=== PATIENT | female | born 1980 | race Caucasian/White ===

== ENCOUNTER → 2017-02-09 | Outpatient (CLI) | payer OTHER ==
--- NOTE | 2017-02-09 12:00 | REP ---
Clinical: Anatomical evaluation. Comparison: None . Findings: Examination demonstrates a single live intrauterine in transverse (head to maternal right) presentation. motion is identified by technologist. Placenta is noted anteriorly and grade one without evidence for placenta previa or abruption. Amniotic fluid volume is normal. Cervix measures 4.8 cm in length and appears closed. No evidence for nuchal cord. Gestational age by LMP 30 weeks 1 day with ДМИТРИЙ 04/19/2017 . Gestational age by current measurements 31 weeks 5 days with ДМИТРИЙ 04/08/2017 . FHR equals 139 beats per minute. BPD 7.9 cm 31 weeks 5 days HC 29.2 cm 32 weeks 1 day AC 26.7 cm 30 weeks 6 days FL 6.1 cm 31 weeks 5 days HL 5.6 cm 32 weeks 4 days HC/AC ratio 1.09 Estimated weight 1738 grams ( 69th percentile). Amniotic fluid index = 20.2 cm (9.0 - 23.4) Umbilical cord SD ratio = 3.31 (2.50 - 3.50) Anatomical assessment demonstrates normal structures including cranium, choroid plexus, cavum, cerebellum/posterior fossa, facial features, lungs, four-chamber heart, diaphragm, stomach, cord insertion/three-vessel cord, kidneys/bladder, and extremities. Impression: 1. Single live advanced gestation in transverse lie demonstrating appropriate growth. 2. No gross anatomical abnormalities are appreciated. 3. Nuchal cord cannot be excluded. 4. The umbilical cord placental insertion is eccentric and approximately 1.7 cm from the posterior edge. Signed by Tristan Jenkins MD 02/09/2017 11:51 A
== END ==
LOC: M RAD 10:30
PROVIDERS: ATTEND Student in an Organized Health Care Education/Training Program
DX: Z36.2 Encounter for other antenatal screening follow-up (principal)

== ENCOUNTER 2017-03-20 14:11 | Outpatient (CLI) | payer OTHER ==
[2017-03-20 15:28] LABS: HEMATOCRIT 31.8 % (36.0-47.0); HEMOGLOBIN 10.5 g/dl (12.0-16.0); MEAN CORPUSCULAR HEMOGLOBIN 28.8 pg (27.0-33.0); MEAN CORPUSCULAR VOLUME 87.4 fl (80.0-96.0); PLATELET COUNT, AUTOMATED 200 10^3/uL (150-450); RED BLOOD COUNT 3.64 10^6/uL (4.00-5.40); RED CELL DISTRIBUTION WIDTH 12.1 % (11.5-14.5); WHITE BLOOD COUNT 11.2 10^3/uL (4.0-10.0)
[2017-03-20 15:53] LABS: INR 0.98; PROTHROMBIN TIME 13.1 SECONDS (12.4-14.5)
[2017-03-20 16:18] LABS: FIBRINOGEN 472 MG/DL (221-452); PARTIAL THROMBOPLASTIN TIME 25.5 SECONDS (26.8-37.9)
== END 2017-03-20 20:00 | disposition home or self-care (01) ==
LOC: M LDO 14:11
DX: O9A.213 Injury, poisoning and certain other consequences of external causes complicating pregnancy, third trimester (principal); S39.92XA Unspecified injury of lower back, initial encounter; W19.XXXA Unspecified fall, initial encounter; Y92.89 Other specified places as the place of occurrence of the external cause; Y93.89 Activity, other specified; Y99.8 Other external cause status; Z3A.35 35 weeks gestation of pregnancy
CPT/HCPCS: 59025

== ENCOUNTER 2017-04-20 07:38 | Outpatient (CLI) | payer OTHER | END 2017-04-20 10:20 | disposition home or self-care (01) | LOC: M LDO 07:38 | DX: O47.1 False labor at or after 37 completed weeks of gestation (principal); Z3A.39 39 weeks gestation of pregnancy | CPT/HCPCS: 59025 ==

== ENCOUNTER 2017-04-22 23:39 | Outpatient (CLI) | payer OTHER | END 2017-04-23 01:02 | disposition home or self-care (01) | LOC: M LDO 23:39 | DX: O47.1 False labor at or after 37 completed weeks of gestation (principal); Z3A.40 40 weeks gestation of pregnancy; O09.523 Supervision of elderly multigravida, third trimester | CPT/HCPCS: 59025 ==

== ENCOUNTER 2017-04-25 06:29 | Inpatient (IN) | payer OTHER ==
[2017-04-25] MEDS: LR 500 ML IV (07:00)
[2017-04-25] MEDS ORDERED: LR 1,000 ML IV (07:00)
[2017-04-25 07:02] LABS: HEMATOCRIT 33.8 % (36.0-47.0); HEMOGLOBIN 10.7 g/dl (12.0-16.0); MEAN CORPUSCULAR HEMOGLOBIN 27.4 pg (27.0-33.0); MEAN CORPUSCULAR HGB CONC 31.7 g/dl (32.0-36.5); MEAN CORPUSCULAR VOLUME 86.4 fl (80.0-96.0); PLATELET COUNT, AUTOMATED 187 10^3/uL (150-450); RED BLOOD COUNT 3.91 10^6/uL (4.00-5.40); RED CELL DISTRIBUTION WIDTH 12.9 % (11.5-14.5); WHITE BLOOD COUNT 9.4 10^3/uL (4.0-10.0)
[2017-04-25] MEDS ORDERED: OXYTOCIN INJ 10 UNITS/ML VIAL (J2590) As Ordered (07:30)
[2017-04-25] MEDS ORDERED: MORPHINE PRES-FREE INJ 10 MG/10 ML VIAL (J2274) As Ordered (07:30)
[2017-04-25] MEDS: BICITRA 30ML SOLN UDC PO (07:31)
[2017-04-25] MEDS ORDERED: NALBUPHINE HCL 10 MG/ML AMP (J2300) IV (07:41)
[2017-04-25] MEDS ORDERED: NALOXONE INJ 0.4 MG/1 ML VIAL (J2310) IV ×2 (07:41)
[2017-04-25] MEDS ORDERED: ONDANSETRON 4MG/2ML VIAL (J2405) IV ×3 (07:41→09:15)
[2017-04-25] MEDS ORDERED: ePHEDrine SULFATE 25 MG/5 ML(5MG/ML) SYRINGE As Ordered (07:41)
[2017-04-25] MEDS ORDERED: ONDANSETRON 4MG/2ML VIAL (J2405) As Ordered (07:50)
[2017-04-25] MEDS ORDERED: KETOROLAC 60 MG/2 ML VIAL (J1885) As Ordered (07:50)
[2017-04-25] MEDS: LR 1,000 ML IV ×3 (09:00→20:57)
[2017-04-25] MEDS ORDERED: PROMETHAZINE 25 MG TAB PO (09:00)
[2017-04-25] MEDS ORDERED: MEASLES,MUMPS,RUBELLA VACCINE INJ (MMR-II) (90707) SC (09:00)
[2017-04-25] MEDS ORDERED: METHYLERGONOVINE MALEATE 0.2 MG TAB PO (09:00)
[2017-04-25] MEDS: PRENATAL VITAMINS CHEWABLE TABLET PO (09:00)
[2017-04-25] MEDS ORDERED: MOM 30ML SUSPENSION UDC PO (09:00)
[2017-04-25] MEDS ORDERED: RHOGAM 300 MCG (1500 IU) INJ (J2790) IM (09:00)
[2017-04-25] MEDS ORDERED: PERCOCET 5MG/325MG TAB PO (09:15)
[2017-04-25] MEDS ORDERED: METOCLOPRAMIDE INJ 10MG/2ML VIAL (J2765) IV (09:15)
[2017-04-25] MEDS ORDERED: fentaNYL 100 MCG/2 ML INJECTION (J3010) IV (09:15)
[2017-04-25] MEDS: KETOROLAC 30 MG/ML VIAL (J1885) IV ×2 (13:45→20:12)
[2017-04-25] MEDS: METOCLOPRAMIDE INJ 10MG/2ML VIAL (J2765) IV (15:44)
[2017-04-25] MEDS: LR 750 ML IV (17:45)
[2017-04-26] MEDS: KETOROLAC 30 MG/ML VIAL (J1885) IV ×2 (01:34→07:39)
[2017-04-26 07:32] LABS: HEMATOCRIT 29.1 % (36.0-47.0); HEMOGLOBIN 9.1 g/dl (12.0-16.0); MEAN CORPUSCULAR HEMOGLOBIN 27.1 pg (27.0-33.0); MEAN CORPUSCULAR HGB CONC 31.3 g/dl (32.0-36.5); MEAN CORPUSCULAR VOLUME 86.6 fl (80.0-96.0); PLATELET COUNT, AUTOMATED 143 10^3/uL (150-450); RED BLOOD COUNT 3.36 10^6/uL (4.00-5.40); WHITE BLOOD COUNT 11.3 10^3/uL (4.0-10.0)
[2017-04-26] MEDS: PRENATAL VITAMINS CHEWABLE TABLET PO (07:39)
[2017-04-26] MEDS: PERCOCET 5MG/325MG TAB PO ×4 (07:40→20:13)
[2017-04-26] MEDS: LR 1,000 ML IV (09:00)
[2017-04-26] MEDS: IBUPROFEN 800 MG TAB PO (15:52)
[2017-04-26] MEDS: DOCUSATE SODIUM 100 MG CAP PO (18:44)
[2017-04-27] MEDS: PERCOCET 5MG/325MG TAB PO ×5 (00:08→12:57)
[2017-04-27] MEDS: IBUPROFEN 800 MG TAB PO ×2 (00:08→08:28)
[2017-04-27] MEDS: DOCUSATE SODIUM 100 MG CAP PO ×3 (00:08→12:36)
[2017-04-27] MEDS: PRENATAL VITAMINS CHEWABLE TABLET PO (08:27)
== END 2017-04-27 13:50 | disposition home or self-care (01) | DRG 766 ==
LOC: M LDI 06:29 → M OBS 10:52
PROVIDERS: Student in an Organized Health Care Education/Training Program
PROC: 10D00Z1 Extraction of Products of Conception, Low, Open Approach (ICD-10-PCS; principal; 2017-04-25 07:30)
DX: O34.211 Maternal care for low transverse scar from previous cesarean delivery (principal); Z3A.40 40 weeks gestation of pregnancy; O48.0 Post-term pregnancy; Z37.0 Single live birth